=== PATIENT | male | born 1965 | race Caucasian/White ===

== ENCOUNTER 2017-06-04 20:21 | Emergency (ER) | payer MEDICARE ==
[2017-06-04] MEDS ORDERED: Lidocaine 2% Viscous Solution 15 ML Cup PO ONE (20:27)
[2017-06-04] MEDS ORDERED: Benzocaine 20% Topical Spray UD MUCMEM ONE (20:27)
--- NOTE | 2017-06-04 20:33 | EDM.PDOC ---
ED HPI GENERAL MEDICAL PROBLEM - General Chief Complaint: ENT Problem Stated Complaint: PT HAS TOOTHACHE Time Seen by Provider: 06/04/17 20:22 Source of Information: Reports: Patient History Limitations: Reports: No Limitations - History of Present Illness INITIAL COMMENTS - FREE TEXT/NARRATIVE: HISTORY AND PHYSICAL: History of present illness: Patient is a 52-year-old male who presents to the emergency room today with complaints of left upper dental pain. He states this has been going on for approximately 2-3 days. He has multiple dental caries and already has had multiple dental extractions. He states he currently does not have a dentist but does plan on obtaining one. Denies any fever, chills, chest pain or shortness of breath. Denies any GI or complaints. Review of systems: As per history of present illness and below otherwise all systems reviewed and negative. Past medical history: As per history of present illness and as reviewed below otherwise noncontributory. Surgical history: As per history of present illness and as reviewed below otherwise noncontributory. Social history: No reported history of drug or alcohol abuse. Family history: As per history of present illness and as reviewed below otherwise noncontributory. Physical exam: General: Well-developed and well nourished 52-year-old male. Alert and oriented. Nontoxic appearing and in no acute distress. HEENT: Atraumatic, normocephalic, pupils equal and reactive bilaterally, negative for conjunctival pallor or scleral icterus, mucous membranes moist, supple dental caries and extractions noted. There is gumline tenderness to the left upper posterior molar area with decay and mild swelling. throat clear, neck supple, nontender, trachea midline. No drooling or trismus noted. No meningeal signs Lungs: Clear to auscultation, breath sounds equal bilaterally, chest nontender. Heart: S1S2, regular rate and rhythm without overt murmur Abdomen: Soft, nondistended, nontender. Negative for masses or hepatosplenomegaly. Negative for costovertebral tenderness. Pelvis: Stable nontender. Genitourinary: Deferred. Rectal: Deferred. Skin: Intact, warm, dry. No lesions or rashes noted. 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 negative for cords or calf pain. Neurovascular unremarkable. Neuro: Awake, alert, oriented. Cranial nerves II through XII unremarkable. Cerebellum unremarkable. Motor and sensory unremarkable throughout. Exam nonfocal. Notes: We'll give the patient clindamycin 3 times a day 10 days. Tooth balls for daytime use along with Tylenol and ibuprofen. Tramadol for nighttime use. Patient is aware he needs to follow up with a dentist for definitive care. Patient voices understanding and is agreeable. He denies any further questions at this time Diagnostics: [] Therapeutics: Dental balls Impression: Dental abscess Plan: 1. Please take your antibiotic as prescribed 2. Tylenol and/or ibuprofen as needed for pain management. May use the dental balls as needed. Do not swallow. Tramadol for nighttime use. This medication may cause drowsiness so do not take it while driving or needing to be functioning outside of the house. 3. Establish care with a local dentist for further evaluation and management. Return to the ED as needed and as discussed. Definitive disposition and diagnosis as appropriate pending reevaluation and review of above. Duration: Day(s): - Related Data Allergies Allergy/AdvReac Type Severity Reaction Status Date / Time No Known Allergies Allergy Verified 06/04/17 20:26 Past Medical History Neurological History: Reports: Cerebral Palsy, Seizure ED ROS ENT - Review of Systems Review Of Systems: ROS reveals no pertinent complaints other than HPI. ED EXAM, ENT - Physical Exam Exam: See Below (See dictation) Course - Orders/Labs/Meds Orders: Active Orders 24 hr Category Date Time Status Benzocaine [Hurricaine One 20%] Med 06/04/17 20:27 Once 2 each MUCMEM ONETIME ONE Lidocaine 2% [Xylocaine 2% Viscous] Med 06/04/17 20:27 Once 15 ml PO ONETIME ONE Departure - Departure Time of Disposition: 20:33 Disposition: Home, Self-Care 01 Clinical Impression: Dental abscess - Discharge Information Instructions: Dental Abscess, [id number] Additional Instructions: The following information is given to patients seen in the emergency department who are being discharged to home. This information is to outline your options for follow-up care. We provide all patients seen in our emergency department with a follow-up referral. The need for follow-up, as well as the timing and circumstances, are variable depending upon the specifics of your emergency department visit. If you don't have a primary care physician on staff, we will provide you with a referral. We always advise you to contact your personal physician following an emergency department visit to inform them of the circumstance of the visit and for follow-up with them and/or the need for any referrals to a consulting specialist. The emergency department will also refer you to a specialist when appropriate. This referral assures that you have the opportunity for follow-up care with a specialist. All of these measure are taken in an effort to provide you with optimal care, which includes your follow-up. Under all circumstances we always encourage you to contact your private physician who remains a resource for coordinating your care. When calling for follow-up care, please make the office aware that this follow-up is from your recent emergency room visit. If for any reason you are refused follow-up, please contact the [facility] Emergency Department at and asked to speak to the emergency department charge nurse. [facility] [address] [place] [id number] 1. Please take your antibiotic as prescribed 2. Tylenol and/or ibuprofen as needed for pain management. May use the dental balls as needed. Do not swallow. Tramadol for nighttime use. This medication may cause drowsiness so do not take it while driving or needing to be functioning outside of the house. 3. Establish care with a local dentist for further evaluation and management. Return to the ED as needed and as discussed. - My Orders Last 24 Hours: My Active Orders 06/04/17 20:27 Benzocaine [Hurricaine One 20%] 2 each MUCMEM ONETIME ONE Lidocaine 2% [Xylocaine 2% Viscous] 15 ml PO ONETIME ONE - Assessment/Plan Last 24 Hours: My Active Orders 06/04/17 20:27 Benzocaine [Hurricaine One 20%] 2 each MUCMEM ONETIME ONE Lidocaine 2% [Xylocaine 2% Viscous] 15 ml PO ONETIME ONE
== END 2017-06-04 20:40 | disposition home or self-care (01) ==
LOC: MW.ED 20:21
DX: K04.7 Periapical abscess without sinus (principal)
CPT/HCPCS: 99282; A9270

== ENCOUNTER 2018-02-27 19:06 | Emergency (ER) | payer MEDICARE ==
[2018-02-27] MEDS ORDERED: Acetaminophen/HYDROcodone 325-5 MG Tab PO ONE (19:33)
--- NOTE | 2018-02-27 19:33 | EDM.PDOC ---
ED HPI GENERAL MEDICAL PROBLEM - General Chief Complaint: ENT Problem Stated Complaint: PT HAS TOOTHACHE Time Seen by Provider: 02/27/18 19:19 Source of Information: Reports: Patient History Limitations: Reports: No Limitations - History of Present Illness INITIAL COMMENTS - FREE TEXT/NARRATIVE: HISTORY AND PHYSICAL: []52-year-old male presenting with tooth pain History of Present Illness: []Started today/swelling noted throughout the left side of his face and upper gumline Review of Systems: As per history of present illness and below otherwise all systems reviewed and negative. Past medical history: As per history of present illness and as reviewed below otherwise noncontributory. Surgical history: As per history of present illness and as reviewed below otherwise noncontributory. Social history: No reported history of drug or alcohol abuse. Family history: As per history of present illness and as reviewed below otherwise noncontributory. Physical exam: Alert and oriented gentleman who is in pain denies the need for the dental balls as he says "they don't work" HEENT: Atraumatic, normocehpalic, pupils reactive, negative for conjunctival pallor or scleral icterus, mucous membranes moist, throat clear, neck supple, nontender, trachea midline. Edema to the jawline/gumline. Lungs: Clear to auscultation, breath sounds equal bilaterally, chest non tender. Heart: S1S2, regular, negative for clicks, rubs, or JVD. Abdomen: Soft, nondistended, nontender. Negative for masses or hepatossplenmegaly. Negative for costovertebral tenderness. Pelvis: Stable nontender. Genitourinary: Deferred. Rectal: Deferred Extremities: Atraumatic, negative for cords or calf pain. Neurovascular unremarkable. Neuro: Awake, alert, oriented. Cranial nerves II through XII unremarkable. Cerebellum unremarkable. Motor and sensory unremarkable throughout. Exam nonfocal. Diagnostics: [] Therapeutics: [] Impression: []Dental abscess Plan: []Stretch home Augmentin [place] Follow-up with your dentist call Wednesday for an appointment Return to ER as directed Definitive disposition and diagnosis as appropriate pending reevaluation and review of above. Onset: Today, Sudden Treatments MALTSTER: Reports: NSAIDS tooth Pain Score (Numeric/FACES): 8 - Related Data Allergies Allergy/AdvReac Type Severity Reaction Status Date / Time No Known Allergies Allergy Verified 01/06/19 19:10 Home Meds: Home Meds Atenolol 1 tab PO DAILY 06/04/17 [History] OXcarbazepine [Oxcarbazepine] 1 tab PO DAILY 06/04/17 [History] levETIRAcetam [Levetiracetam] 1 tab PO DAILY 06/04/17 [History] Amoxicillin/Potassium Clav [Amox-Clav 250-125 mg Tablet] 1 each PO BID #20 tablet 02/27/18 [Rx] OXcarbazepine [Oxtellar Xr] 1 tab PO DAILY 02/27/18 [History] Past Medical History HEENT History: Reports: None Cardiovascular History: Reports: High Cholesterol, Hypertension Respiratory History: Reports: None Gastrointestinal History: Reports: None Genitourinary History: Reports: None Musculoskeletal History: Reports: None Neurological History: Reports: Cerebral Palsy, Seizure Psychiatric History: Reports: Mood Swings Endocrine/Metabolic History: Reports: None Hematologic History: Reports: None Immunologic History: Reports: None Oncologic (Cancer) History: Reports: None Dermatologic History: Reports: None - Infectious Disease History Infectious Disease History: Reports: None - Past Surgical History Head Surgeries/Procedures: Reports: None Social & Family History - Family History Family Medical History: Noncontributory - Tobacco Use Smoking Status *Q: Never Smoker - Caffeine Use Caffeine Use: Reports: None - Recreational Drug Use Recreational Drug Use: No ED ROS ENT - Review of Systems Review Of Systems: ROS reveals no pertinent complaints other than HPI. ED EXAM, ENT - Physical Exam Exam: See Below (see dictation) Course - Vital Signs Last Recorded V/S: Last Vital Signs Temp 37.0 C 02/27/18 19:15 Pulse 97 02/27/18 19:15 Resp 18 02/27/18 19:15 BP 173/99 H 02/27/18 19:15 Pulse Ox 97 02/27/18 19:15 - Orders/Labs/Meds Orders: Active Orders 24 hr Category Date Time Status Acetaminophen/HYDROcodone [[place] 325-5 MG] Med 02/27/18 19:33 Once 1 tab PO ONETIME ONE Departure - Departure Time of Disposition: 19:34 Disposition: Home, Self-Care 01 Condition: Good Clinical Impression: Dental abscess - Discharge Information Prescriptions: Amoxicillin/Potassium Clav [Amox-Clav 250-125 mg Tablet] 1 each PO BID #20 tablet Instructions: Dental Abscess Referrals: PCP,None [Primary Care Provider] - Forms: ED Department Discharge - My Orders Last 24 Hours: My Active Orders 02/27/18 19:33 Acetaminophen/HYDROcodone [[place]wig 325-5 MG] 1 tab PO ONETIME ONE - Assessment/Plan Last 24 Hours: My Active Orders 02/27/18 19:33 Acetaminophen/HYDROcodone [[place] 325-5 MG] 1 tab PO ONETIME ONE
[2018-02-27] MEDS ORDERED: Amoxicillin/Clavulanate K 875-125 MG Tab PO ONE (19:38)
== END 2018-02-27 19:45 | disposition home or self-care (01) ==
LOC: MW.ED 19:06
DX: K04.7 Periapical abscess without sinus (principal); E78.00 Pure hypercholesterolemia, unspecified; I10 Essential (primary) hypertension; Z79.899 Other long term (current) drug therapy
CPT/HCPCS: 99282; A9270

== ENCOUNTER 2020-04-11 12:06 | Day surgery (SDC) | payer MEDICARE, OTHER ==
[2020-04-11] MEDS ORDERED: Ropivacaine 0.5% 5 MG/ML 30 ML SDV INJECT ONE (13:00)
[2020-04-11] MEDS ORDERED: Iopamidol 200-M 10 ML vial ITHECAL ONE (13:00)
[2020-04-11] MEDS ORDERED: Lidocaine 2% 5 ML SDV INJECT ONE (13:00)
[2020-04-11] MEDS ORDERED: Betamethasone Acetate/Betamethasone Sod Phosphate 30 MG/5 ML MDV EPIDUR ONE (13:00)
--- NOTE | 2020-04-11 19:28 | OR ---
SURGEON: Karime Estrella D.O. DATE OF PROCEDURE: 04/11/2020 PRIMARY SURGEON: Karime Estrella D.O. OR STAFF: KERVIN Petit RN J. Ceglowski, RT PREOPERATIVE DIAGNOSES: 1. Lumbar L3-4, L4-5, L5-S1 facet arthropathy. 2. Lumbar spondylosis. 3. Chronic low back pain. POSTOPERATIVE DIAGNOSES: 1. Lumbar L3-4, L4-5, L5-S1 facet arthropathy. 2. Lumbar spondylosis. 3. Chronic low back pain. PROCEDURES PERFORMED: 1. Right 3-4 facet joint injection. 2. Right 4-5 facet joint injection. 3. Right L5-S1 facet joint injection. 4. Left L3-4 facet joint injection. 5. Left L4-5 facet joint injection. 6. Left L5-S1 facet joint injection. 7. Fluoroscopic guidance for needle placement. 8. Local with oral Valium for sedation. SCREENING QUESTIONS: The patient answered "No" to all the following questions: 1. Are you allergic to iodine, Betadine or latex? 2. Do you have a bleeding disorder? 3. Are you on anti-inflammatories or blood thinners? 4. Do you have any current local or systemic infections? DESCRIPTION OF PROCEDURE: The patient had the procedure thoroughly explained including risks, benefits and alternatives. Consent was signed in my clinic indicating understanding and willingness to proceed. The patient presented to [facility] and was escorted to the dressing room to disrobe and change into a hospital gown. Preoperative history and screening were performed by my nurse. Vital signs were taken and stable. The patient reported that Valium 10 milligrams was taken prior to the procedure. The patient was brought back to the procedure room and placed in the prone position on the procedure room table. A pillow was placed under the abdomen in order to flatten the lumbar lordosis. The back was prepped with ChloraPrep and sterilely draped. All personnel in the procedure room were dressed in appropriate attire including surgical scrubs, head and shoe covers. This was to ensure sterility while in the treatment room. During the time fluoroscopy was in use all personnel in the operating room wore lead mock with thyroid collars. Sterile technique was used during the procedure. The fluoroscope was positioned to provide a right oblique view. Then the right L3-4 facet joint injection was begun by anesthetizing the skin and soft tissues with 2 cubic centimeters of 2% Preservative-Free Lidocaine with a 25-gauge 1.5 inch needle. There were no signs of infection at the site of needle skin insertions. Using fluoroscopic guidance a sterile 22-gauge 3.5 inch spinal needle was positioned at the "ear of the blossom dog"of the L3-4 facet. Precise needle placement was confirmed by fluoroscopy and 0.2 cubic centimeters of IsoVue-200 contrast dye which was injected through microbore tubing under live fluoroscopy and showed no intravascular flow pattern and adequate flow over the target facet joint. Then 1.0 cubic centimeters of celestone and 0.5% Ropivacaine Preservative-Free was injected slowly without complications after negative aspiration. The left L3-4 facet joint injection was then preformed on the left side as above. Then the fluoroscope was positioned to provide a right oblique view for the right L4-5 facet joint injection. This was begun by anesthetizing the skin and soft tissues. The fluoroscope was positioned and a sterile 22-gauge 3.5 inch needle was placed at the "ear of the blossom dog." of the L4-5 facet. Precise needle placement was confirmed by fluoroscopy. Then 0.2 cubic centimeters of IsoVue-200 contrast dye was injected through microbore tubing under live fluoroscopy and showed no intravascular flow pattern and adequate flow over the target facet joint. After negative aspiration, 1.0 cubic centimeters of celestone and 0.5% Ropivacaine was injected without complications. This was repeated on the left as above. The fluoroscope was then positioned to provide a right L5-S1 facet joint injection. This was begun by anesthetizing the skin and soft tissues over the right sacral sulcus. Then using fluoroscopic guidance, a sterile 22-gauge 3.5 inch spinal needle was positioned at the right "ear of the blossom dog" at L5-E0olemc. Precise needle placement was confirmed by fluoroscopy in AP and oblique views, and 0.2 cubic centimeters of IsoVue-200 contrast dye was injected through microbore tubing under live fluoroscopy and showed no intravascular flow pattern and adequate flow over the target . After negative aspiration, 1.0 cubic centimeters of celestone and 0.5% Ropivacaine was injected. Then attention was turned to the left side for the left L5-S1 facet injection repeated as above with no complacations. The procedures were well tolerated and vital signs were stable during and after the procedure. The staff escorted the patient to the recovery area. The patient was given both oral and written discharge and followup instructions. The patient will follow up with a pain diary which will be evaluated over this evening doing things that would normally cause pain. We will evaluate the efficacy of the diagnostic lumbar medial branch blocks as the patient will follow up in the clinic the next day. The patient was given both oral and written discharge and followup instructions. The patient voiced understanding including understanding of those signs and symptoms that would require emergency care and knows how to contact the office if there are any questions or concerns in the meantime. PREOPERATIVE PAIN: 7/10. POSTOPERATIVE PAIN: 0/10. FOLLOWUP: In the Pain Clinic in 1 month. MURPHY / SALVADOR /[id number] JOLENE
== END 2020-04-11 13:31 ==
LOC: MW.SDS 12:06
PROVIDERS: ATTEND Anesthesiology
DX: G89.0 Central pain syndrome (principal); M47.816 Spondylosis without myelopathy or radiculopathy, lumbar region; M47.817 Spondylosis without myelopathy or radiculopathy, lumbosacral region; I10 Essential (primary) hypertension; Z79.899 Other long term (current) drug therapy; Z98.890 Other specified postprocedural states; M48.061 Spinal stenosis, lumbar region without neurogenic claudication; G80.1 Spastic diplegic cerebral palsy; M51.26 Other intervertebral disc displacement, lumbar region
CPT/HCPCS: 64493; 64494; 64495; J0702; J2795; Q9966